=== PATIENT | female | born 1985 | race Caucasian/White ===

== ENCOUNTER 2017-12-14 12:46 | Outpatient (CLI) | payer SELFPAY ==
[2017-12-14 13:11] VITALS: BP 119/78
== END 2017-12-14 14:10 | disposition home or self-care (01) ==
LOC: TRG 12:46
PROVIDERS: ATTEND Obstetrics & Gynecology
DX: O47.1 False labor at or after 37 completed weeks of gestation (principal); Z3A.38 38 weeks gestation of pregnancy
CPT/HCPCS: 59025

== ENCOUNTER 2017-12-21 14:36 | Outpatient (CLI) | payer OTHER ==
[2017-12-21 15:00] VITALS: BP 121/75
--- NOTE | 2017-12-22 07:21 | Progress Note ---
Assessment and Plan A: at 39 weeks gestation. False labor versus early labor. P: NST. SVE. It was determined that patient was not in active labor. Patient was discharged home with discussion of signs/symptoms of active labor. Pt. to continue to perform daily movement counting. Advised pt. to follow up with [facility] early this week. Subjective - Subjective Date of service: 12/21/17 Principal diagnosis: at 39 weeks gestation; rule out labor Interval history: 32 year old at 39 weeks gestation presents to L&D to rule out labor. Patient states she was seen at [facility] clinic this morning and was told to come to hospital this afternoon to have her cervix rechecked. Patient reports irregular contractions. She reports active movement. She denies leaking of fluid or vaginal bleeding. Patient receives care at [facility]. Patient reports: movement normal, contractions, no loss of fluid, no vaginal bleeding Objective - Exam Abdomen: Present: normal appearance, soft. Absent: distention, tenderness, guarding, rigidity FHR: category 1 Uterine Contraction Monitor Mode: External Cervical Dilatation: 3.5 Cervical Effacement Percentage: 90 station: -1 Uterine Contraction Pattern: Irregular Uterine Contraction Intensity: Mild Extremities: normal
== END 2017-12-21 18:05 | disposition home or self-care (01) ==
LOC: TRG 14:36
PROVIDERS: ATTEND Obstetrics & Gynecology
DX: O47.1 False labor at or after 37 completed weeks of gestation (principal); Z3A.39 39 weeks gestation of pregnancy; Z88.8 Allergy status to other drugs, medicaments and biological substances
CPT/HCPCS: 59025

== ENCOUNTER 2017-12-23 09:11 | Inpatient (IN) | payer OTHER ==
[2017-12-23] MEDS ORDERED: XYLOCAINE 2% INFILTRATI ONE ×2 (09:45→20:00)
[2017-12-23] MEDS ORDERED: POLYCILLIN/NS 2 GM/100 ML 2 GM/100 ML BAG IV ONE (09:45)
[2017-12-23] MEDS ORDERED: MINERAL OIL PO PRN (09:45)
[2017-12-23] MEDS ORDERED: BRETHINE IVP PRN (09:45)
[2017-12-23] MEDS ORDERED: SUBLIMAZE IV PRN (09:45)
[2017-12-23] MEDS ORDERED: BRETHINE SUB-Q PRN (09:45)
[2017-12-23] MEDS ORDERED: PITOCin/NS 20 UNIT/1000ML DRIP 20 UNITS/1,000 ML BAG IV SCH (10:00)
[2017-12-23] MEDS ORDERED: STADOL ONE (10:01)
[2017-12-23] MEDS: LACTATED RINGERS 1,000 ML IV SCH ×2 (10:20→13:56)
--- NOTE | 2017-12-23 10:38 | History and Physical Report ---
History of Present Illness Date of examination: 12/23/17 Date of admission: 12/23/17 09:12 Chief complaint: contractions History of present illness: 32yo G 1 P 0 @ 39 weeks 2 days here with c/o contractions since last night and worsening since 6 am. She reports positive movements but denies vaginal bleeding or loss of fluid. She is a transfer OB pt from [place] who initiated care at [facility] at 31 weeks 2 days. Her course has been unremarkable. labs: B+, antibody neg, H/H 11.9/34.9, Pap test normal, Rubella immune , VDRL neg, HBsAg negative, HIV negative, chlamydia neg, GC neg, GBS positive. Past History Past Medical History: no pertinent history Past Surgical History: no surgical history Family/Genetic History: diabetes Social history: single, lives with family, full code. denies: smoking, alcohol abuse, IV drug use - Obstetrical History Expected Date of Delivery: 12/28/17 Actual Gestation: 39 Week(s) 2 Day(s) : 1 Para: 0 Hx # Term Pregnancies: 0 Number of Pregnancies: 0 Spontaneous Abortions: 0 Induced : 0 Number of Living Children: 0 Medications and Allergies Allergies Allergy/AdvReac Type Severity Reaction Status Date / Time dexamethasone Allergy Unknown Verified 12/23/17 09:56 Home Medications Medication Instructions Recorded Confirmed Last Taken Type No Known Home Medications [No 12/14/17 12/23/17 Unknown History Reported Home Medications] Active Meds: Active Medications Ephedrine Sulfate (Ephedrine Sulfate) 10 mg IV Q2M PRN PRN Reason: Hypotension Fentanyl (Sublimaze) 100 mcg IV Q2H PRN PRN Reason: Labor Pain Ampicillin Sodium (Polycillin/Ns 2 Gm/100 Ml) 2 gm in 100 mls @ 100 mls/hr IV ONCE ONE; Protocol Stop: 12/23/17 10:44 Last Admin: 12/23/17 10:20 Dose: 100 mls/hr Lactated Ringer's (Lactated Ringers) 1,000 mls @ 125 mls/hr IV DIRECT DINA Last Admin: 12/23/17 10:20 Dose: 125 mls/hr Oxytocin/Sodium Chloride (Pitocin/Ns 20 Unit/1000ml Drip) 20 units in 1,000 mls @ 125 mls/hr IV DIRECT DINA Ampicillin Sodium (Ampicillin/Ns 1 Gm/50 Ml) 1 gm in 50 mls @ 100 mls/hr IV Q4HR DINA; Protocol Mineral Oil (Mineral Oil) 30 ml PO QHS PRN PRN Reason: Constipation Terbutaline Sulfate (Brethine) 0.25 mg SUB-Q ONCE PRN PRN Reason: Hyperstimulation/Hypertonicity Terbutaline Sulfate (Brethine) 0.25 mg IVP ONCE PRN PRN Reason: Hyperstimulation/Hypertonicity Review of Systems All systems: negative - Vital Signs Vital signs: Vital Signs Pulse BP 67 132/71 12/23/17 09:24 12/23/17 09:24 Temp Pulse Resp BP Pulse Ox 70 134/91 12/23/17 09:50 12/23/17 09:50 - Obstetrical FHR: auscultation normal, category 1 FHR comments: baseline 130, moderate variability, + accels, no decels Cervical Dilatation: 5 (per RN) Cervical Effacement Percentage: 50 (per RN) station: -2 (per RN) Uterine Contraction Pattern: Irregular Results Result Diagrams: 12/23/17 10:00 All other labs normal. Assessment and Plan - Patient Problems (1) 39 weeks gestation of Current Visit: Yes Status: Acute (2) Active labor at term Current Visit: Yes Status: Acute Plan to address problem: Admit to L&D with routine labor orders May get epidural anesthesia Oxytocin for labor augmentation Anticipate vaginal delivery (3) Group B Streptococcus carrier, +RV culture, currently Current Visit: Yes Status: Acute Plan to address problem: Start ampicillin for GBS prophylaxis
[2017-12-23 10:52] LABS: Hematocrit 38.2 % (30.3-42.9); Mean Corpuscular HGB Conc 34 % (30-34); Mean Corpuscular Hemoglobin 31 pg (28-32); Mean Corpuscular Volume 90 fl (79-97); Platelet Count 217 K/mm3 (140-440); Red Blood Count 4.23 M/mm3 (3.65-5.03); Red Cell Distribution Width 13.1 % (13.2-15.2)
[2017-12-23] MEDS ORDERED: NARCAN 2 MG/2 ML IV PRN (12:53)
--- NOTE | 2017-12-23 12:53 | Anesthesia Consultation ---
Anesthesia Consult and Med Hx Date of service: 12/23/17 - Airway Anesthetic Teeth Evaluation: Good ROM Head & Neck: Adequate Mental/Hyoid Distance: Adequate Mallampati Class: Class II Intubation Access Assessment: Probably Good - Pre-Operative Health Status ASA Pre-Surgery Classification: ASA2 Proposed Anesthetic Plan: Epidural, Spinal - Pulmonary Hx Asthma: No - Cardiovascular System Hx Hypertension: No - Central Nervous System Hx Seizures: No Hx Psychiatric Problems: No - Endocrine Hx Renal Disease: No Hx Hypothyroidism: No Hx Hyperthyroidism: No - Hematic Hx Anemia: No Hx Sickle Cell Disease: No - Other Systems Hx Alcohol Use: No
[2017-12-23] MEDS ORDERED: fentaNYL-BUPIV 2 MCG/ML-0.125% 200 MCG/100 ML BAG EPIDURAL SCH (13:00)
[2017-12-23] MEDS: AMPICILLIN/NS 1 GM/50 ML 1 GM/50 ML BAG IV SCH ×2 (13:55→17:47)
[2017-12-23] MEDS ORDERED: PITOCin/NS 30 UNIT/500ML 30 UNITS/500 ML BAG IV SCH (16:00)
[2017-12-23] MEDS ORDERED: ZOFRAN IM ONE (17:30)
[2017-12-23] MEDS ORDERED: ZOFRAN ONE (17:32)
[2017-12-23] MEDS ORDERED: ZOFRAN IV ONE (19:06)
[2017-12-23] MEDS ORDERED: LANSINOH TP PRN (20:37)
[2017-12-23] MEDS ORDERED: PHENERGAN PR PRN (20:37)
[2017-12-23] MEDS ORDERED: MILK OF MAGNESIA PO PRN (20:37)
[2017-12-23] MEDS ORDERED: TYLENOL PO PRN (20:37)
[2017-12-23] MEDS ORDERED: TUCKS PAD TP PRN (20:37)
[2017-12-23] MEDS ORDERED: PHENERGAN PO PRN (20:37)
[2017-12-23] MEDS ORDERED: BENADRYL PO PRN (20:37)
[2017-12-23] MEDS ORDERED: ZOFRAN IV PRN (20:37)
[2017-12-23] MEDS ORDERED: DULCOLAX PR PRN (20:37)
--- NOTE | 2017-12-23 20:42 | Procedure Note ---
OB Delivery Note - Delivery Date of Delivery: 12/23/17 (19:54) Surgeon: MARTHA HOOD (CATHIE) Estimated blood loss: 200cc - Vaginal Delivery presentation: compound (right posterior arm delivered prior to delivery of head) Delivery position: OA Intrapartum events: none Delivery induction: none Delivery augmentation: pitocin Delivery monitor: external FHT, external uterine Route of delivery: Delivery placenta: spontaneous (20:00) Delivery cord: 3 umbilical vessels Episiotomy: none Delivery laceration: 1st degree (perineal), 2nd degree (vaginal) Anesthesia: epidural Delivery comments: of a viable term 7 lbs 7 oz male on 12/23/17 @ 19:54. Baby placed skin-to- skin on maternal abdomen. After 3 mins, umbilical cord double-clamped by CATHIE Hood and cut by FOB. Spontaneous delivery of placenta, [place]-side presenting @ 20:00. Small lochia noted. Fundal massage and IV Pitocin bolus initiated. Fundus F/ML/U-1. Second degree vaginal & first degree perineal laceration noted and repaired using 3-0 vicryl sutures under epidural anesthesia. Pt tolerated the procedure well. Placenta intact; discarded. Mom and baby in stable condition. - Infant A at 1 minute: 8 at 5 minutes: 9 Infant Gender: Male (7 lbs 7 oz (3385 gm); 20in)
[2017-12-23] MEDS ORDERED: SODIUM CHLORIDE FLUSH SYRINGE 10 ML IV PRN (21:00)
[2017-12-24] MEDS: MOTRIN PO SCH ×5 (00:03→23:35)
[2017-12-24 09:46] LABS: Hematocrit 30.6 % (30.3-42.9); Hemoglobin 10.3 gm/dl (10.1-14.3)
--- NOTE | 2017-12-24 10:09 | Progress Note ---
Assessment and Plan A: PPD#1 s/p Stable P: Routine PP care Anticipate discharge home 24-48 hrs Subjective - Subjective Date of service: 12/24/17 Principal diagnosis: PPD#1 s/p Patient reports: appetite normal, voiding normally, pain well controlled, flatus , ambulating normally, no bowel movement : doing well, bottle feeding Objective - Vital Signs Latest vital signs: Vital Signs Temp Pulse Resp BP BP Pulse Ox 12/24/17 08:44 98.4 F 76 18 104/50 97 12/24/17 06:56 18 12/24/17 05:56 18 12/24/17 04:15 98.1 F 79 18 102/64 100 12/24/17 01:03 18 12/24/17 00:03 18 12/23/17 22:30 98.8 F 82 18 106/48 100 12/23/17 22:00 99.2 F 16 12/23/17 20:33 76 116/58 12/23/17 20:30 98.2 F 18 12/23/17 20:18 76 126/64 12/23/17 17:00 98.9 F Intake and Output 12/23/17 12/24/17 12/24/17 23:59 07:59 15:59 Intake Total 12.767 480 Output Total 300 Balance 12.767 180 Intake: IV 12.767 PITOCin/NS 30 UNIT/500ML 12.767 30 units In 500 ml @ 2 MILLIUNITS/MIN 2 mls/hr IV TITR DINA Rx#:[id number] Oral 360 Intake, Free Water 120 Output: Urine 300 Void 300 Other: Total, Intake Amount 120 Total, Output Amount 300 # Voids Void 1 Estimated Blood Loss 200 - Exam Breasts: Present: normal Cardiovascular: Present: Regular rate, Normal S1, Normal S2, No murmurs Lungs: Present: Clear to auscultation, Normal air movement Abdomen: Present: normal appearance, soft, normal bowel sounds. Absent: distention Vulva: both: normal, laceration/episiotomy (well approximated) Uterus: Present: firm, fundal height below umbilicus (-1) Extremities: Present: normal Deep Tendon Reflex Grade: Normal +2 - Labs Labs: Abnormal lab results 12/23/17 Range/Units 10:00 WBC 11.8 H (4.5-11.0) K/mm3 RDW 13.1 L (13.2-15.2) %
--- NOTE | 2017-12-24 10:11 | Discharge Summary ---
Providers - Providers Date of Admission: 12/23/17 09:12 Date of discharge: 12/25/17 Attending physician: PB NUGENT MD Primary care physician: PB NUGENT MD Hospitalization Reason for admission: active labor, IUP at term Delivery: Procedure details: See delivery note Episiotomy: none Laceration: 1st degree (Perineal, well approximated), 2nd degree (Vaginal) Other procedures: none complications: none Discharge diagnosis: IUP at term delivered [place] baby: female Condition at discharge: Good Disposition: DC-01 TO HOME OR SELFCARE Plan - Provider Discharge Summary Activity: routine, no sex for 6 weeks, no heavy lifting 4 weeks, no strenuous exercise Diet: routine Instructions: routine Additional instructions: [] Smoking cessation referral if applicable(refer to patient education folder for contact #) [] Refer to [facility] Booklet Call your doctor immediately for: * Fever > 100.5 * Heavy vaginal bleeding ( >1 pad per hour) * Severe persistent headache * Shortness of breath * Reddened, hot, painful area to leg or breast * Drainage or odor from incision. * Keep incision clean and dry at all times and follow doctor's instructions regarding bathing/showering - Follow up plan Follow up: PB NUGENT MD [Primary Care Provider] - 6 Weeks
[2017-12-24] MEDS: PRENATAL VITAMIN PO SCH (12:01)
[2017-12-24] MEDS: NORCO 5/325 PO PRN (20:35)
[2017-12-25] MEDS ORDERED: BOOSTRIX IM ONE (06:00)
[2017-12-25] MEDS: NORCO 5/325 PO PRN (06:10)
[2017-12-25] MEDS: MOTRIN PO SCH ×3 (06:10→18:35)
[2017-12-25] MEDS: PRENATAL VITAMIN PO SCH (10:40)
[2017-12-25 16:45] VITALS: BP 125/84
== END 2017-12-25 19:30 | disposition home or self-care (01) | DRG 775 ==
LOC: TRG 09:11 → LD 09:12 → TRG 09:12 → OB 21:36
PROVIDERS: ADMIT Obstetrics & Gynecology; ATTEND Obstetrics & Gynecology
PROC: 10E0XZZ Delivery of Products of Conception, External Approach (ICD-10-PCS; principal; 2017-12-23)
PROC: 0KQM0ZZ Repair Perineum Muscle, Open Approach (ICD-10-PCS; 2017-12-23)
PROC: 3E0R3BZ Introduction of Anesthetic Agent into Spinal Canal, Percutaneous Approach (ICD-10-PCS; 2017-12-23)
PROC: 00HU33Z Insertion of Infusion Device into Spinal Canal, Percutaneous Approach (ICD-10-PCS; 2017-12-23)
DX: O99.824 Streptococcus B carrier state complicating childbirth (principal); Z3A.39 39 weeks gestation of pregnancy; Z37.0 Single live birth; Z83.3 Family history of diabetes mellitus; Z88.8 Allergy status to other drugs, medicaments and biological substances; O70.1 Second degree perineal laceration during delivery
CPT/HCPCS: 36415; 85014; 85018; 85027; 86592; 86850; 86900; 86901; 90715; 99211; A6250; G0463; J0290; J0595; J2405; J2590; J7120